=== PATIENT | male | born 1955 | race Caucasian/White ===

== ENCOUNTER 2019-02-13 00:54 | Inpatient (IN) | payer OTHER ==
[~2019-02-13] VITALS: Ht 172.7 cm; Wt 80.9 kg
[2019-02-13 00:58] VITALS: BP 158/94
--- NOTE | 2019-02-13 01:00 | NUR ---
RECEIVED PT FROM ED VIA [facility]. ORIENTED PT TO ROOM AND SURROUNDINGS. IV NOTED TO RAC PATENT AND INTACT. TELE 23 PLACED ON PT READING NSR. INSTRUCETD PT ON THE USE OF CALL LIGHT FOR ASSISTANCE. ENDORSED PT TO PRIMARY NURSE IRINA
--- NOTE | 2019-02-13 01:44 | NUR ---
RECEIVED PT FROM [facility]IA [facility] AAOX4 NO ACUTE DISTRESS NOTED ADMIT ASSESMENT DONE BY RN DENEEN . PIV INACT INFUSING WELL NS AT 80ML/HR PLACED PT ON TELE NUMBER 23 THAT SHOWS NSR HR 88.
[2019-02-13 05:30] VITALS: BP 142/88
--- NOTE | 2019-02-13 05:55 | NUR ---
I HAVE REVIEWED THE DATA COLLECTION BY MYLENE (NAME): IRINA QUINTANA ENTERED ON (DATE/TIME): 02/13/19 5058 I CONCUR WITH THE DATA AND ANY EXCEPTIONS OR COMMENTS ARE LISTED BELOW:
--- NOTE | 2019-02-13 06:21 | NUR ---
NO CHANGES OF CONDITION NOTED, ALL DUE MEDS GIVEN NO REACTION NOTED, PIV INTACT INFUSING WELL , TELE NSR .
[2019-02-13 06:55] LABS: BASOPHIL % 0.6 % (0-2); PLATELET COUNT 227 x10^3mcL (130-400); RED CELL DISTRIBUTION WIDTH 12.8 % (11.5-14.5)
--- NOTE | 2019-02-13 07:07 | NUR ---
REPORT TAKEN FROM TEARER NURSE, WILL CONINUE TO MONITOR.
[2019-02-13 08:15] VITALS: BP 165/83
[2019-02-13 08:24] LABS: ALBUMIN 3.6 g/dL (3.4-5.0); ALKALINE PHOSPHATASE 74 U/L (46-116); ALT/SGPT 38 U/L (16-63); AST/SGOT 50 U/L (15-37); BILIRUBIN TOTAL 0.6 mg/dL (0.20-1.00); CALCIUM 7.9 mg/dL (8.5-10.1); CARBON DIOXIDE 21.8 mmol/L (21-32); CHLORIDE SERUM 103 mmol/L (98-107); CREATININE SERUM 0.8 mg/dL (0.7-1.3); GFR1 > 60 mL/min; GLUCOSE SERUM 85 mg/dL (74-106); POTASSIUM SERUM 3.7 mmol/L (3.5-5.1); SODIUM SERUM 137 mmol/L (136-145); TOTAL PROTEIN, SERUM 7.1 g/dL (6.4-8.2)
[2019-02-13 11:42] VITALS: BP 167/79
--- NOTE | 2019-02-13 12:04 | NUR ---
PT SIGNED DC PAPERWORK, DENIED PAIN AT THIS TIME, WAITNG FOR DAUGHTER TO PICK HIM UP, WILL CONTINUE TO MONITOR TILL THAT TIME.
[2019-02-13 12:08] VITALS: BP 164/79
--- NOTE | 2019-02-13 12:32 | NUR ---
IV DC'D FROM LEFT AC AT THIS TIME, TELE RETURNED TO MT STATION, PATIENT DAUGHTER IS AT THE BEDSIDE AND WILL TAKE PATIENT HOME AFTER HE EATS LUNCH.
== END 2019-02-13 12:50 | disposition home or self-care (01) | DRG 641 ==
LOC: DU 00:54
PROVIDERS: ADMIT Internal Medicine Pulmonary Disease
DX: E87.1 Hypo-osmolality and hyponatremia (principal); A08.4 Viral intestinal infection, unspecified; I10 Essential (primary) hypertension; F10.10 Alcohol abuse, uncomplicated; Y90.0 Blood alcohol level of less than 20 mg/100 ml; E86.0 Dehydration
CPT/HCPCS: G0378; J7030